=== PATIENT | female | born 1995 | race Caucasian/White ===

== ENCOUNTER 2021-05-13 13:13 | Emergency (ER) | payer OTHER, MEDICAID ==
[2021-05-13] MEDS ORDERED: Mag-Al Plus 1200 MG/1200 MG/120 MG/30 ML UDCUP ONE (14:19)
[2021-05-13] MEDS ORDERED: Lidocaine Viscous Sol 2% 15 ml UD Cup ONE (14:19)
== END 2021-05-13 14:33 | disposition home or self-care (01) ==
LOC: CSHERS 13:13
DX: O26.892 Other specified pregnancy related conditions, second trimester (principal); O99.282 Endocrine, nutritional and metabolic diseases complicating pregnancy, second trimester; E03.9 Hypothyroidism, unspecified; Z79.899 Other long term (current) drug therapy; Z3A.25 25 weeks gestation of pregnancy
CPT/HCPCS: 93005

== ENCOUNTER 2021-12-25 00:27 | Emergency (ER) | payer OTHER | END 2021-12-25 01:44 | disposition home or self-care (01) | LOC: CSHERS 00:27 | DX: R42 Dizziness and giddiness (principal); E03.9 Hypothyroidism, unspecified; Z79.899 Other long term (current) drug therapy; Z77.22 Contact with and (suspected) exposure to environmental tobacco smoke (acute) (chronic) | CPT/HCPCS: 99283 ==